=== PATIENT | female | born 1985 | race American Indian/Alaskan Native ===

== ENCOUNTER 2018-01-23 18:41 | Observation (INO) | payer MEDICAID, OTHER ==
[2018-01-23] MEDS ORDERED: BENADRYL ONE (19:28)
[2018-01-23] MEDS ORDERED: SOLU-Medrol ONE (19:29)
[2018-01-23] MEDS ORDERED: PEPCID IV ONE ×2 (19:29→19:44)
[2018-01-23] MEDS ORDERED: BENADRYL IV ONE (19:44)
[2018-01-23] MEDS ORDERED: SOLU-Medrol IV ONE (19:44)
--- NOTE | 2018-01-23 21:40 | Emergency Department Report ---
HPI - General Chief Complaint: Allergic Reaction Time Seen by Provider: 01/23/18 20:47 ED Past Medical Hx - Past Medical History Hx Hypertension: No Hx Congestive Heart Failure: No Hx Diabetes: No Hx Deep Vein Thrombosis: No Hx Renal Disease: No Hx Sickle Cell Disease: No Hx Seizures: No Hx Asthma: No Hx COPD: No Hx HIV: No - Social History Smoking Status: Never Smoker Substance Use Type: None - Medications Home Medications: Home Medications Medication Instructions Recorded Confirmed Last Taken Type Fluconazole [Diflucan TAB] 150 mg PO ONCE #1 tablet 12/28/16 Unknown Rx Miconazole/Cleanser 17 On Wipe 1 each VG QHS #1 kit 12/28/16 Unknown Rx [Monistat 7 Combination Pack] Multivitamin Tab [Multiple Vitamin 1 each PO QDAY #30 tablet 12/28/16 Unknown Rx TAB (Theragran)] Pantoprazole [Protonix TAB] 20 mg PO QDAY #30 tablet. 12/28/16 Unknown Rx predniSONE [Deltasone] 40 mg PO QDAY #30 tablet 12/28/16 Unknown Rx ED Review of Systems ROS: Stated complaint: ALLERGIC REACTION Other details as noted in HPI Physical Exam - Physical Exam Vital Signs: Vital Signs 01/23/18 19:39 Temperature 99.5 F Pulse Rate 72 Respiratory 16 Rate Blood Pressure 136/84 O2 Sat by Pulse 100 Oximetry ED Course Vital Signs 01/23/18 19:39 Temperature 99.5 F Pulse Rate 72 Respiratory 16 Rate Blood Pressure 136/84 O2 Sat by Pulse 100 Oximetry Critical care attestation.: If time is entered above; I have spent that time in minutes in the direct care of this critically ill patient, excluding procedure time. ED Disposition Clinical Impression: Angioedema, Lip swelling Disposition: OP ADMIT IP TO THIS HOSP Is pt being admited?: Yes Condition: Stable Referrals: PRIMARY CARE, [Primary Care Provider] - 3-5 Days Time of Disposition: 21:42 (Dr Peace/hosp)
--- NOTE | 2018-01-23 21:47 | Emergency Department Report ---
<RASHMI BARRETT - Last Filed: 01/23/18 21:42> ED General Adult HPI - General Chief complaint: Allergic Reaction Stated complaint: ALLERGIC REACTION Time Seen by Provider: 01/23/18 20:47 Source: patient Mode of arrival: Ambulatory Limitations: No Limitations - History of Present Illness Initial comments: 33-year-old female with no significant past medical history presents to the emergency department complaining of a 13 hour history of progressively worsening upper lip swelling. She denies any medication, illicit drugs, environmental allergies, foods, family history, foreign travel, or new supplements that may have precipitated the swelling event. Currently, she reports no chest pain, palpitations, fever, chills, sweats, nausea, vomiting, neck pain, odynophagia, dysphagia. No rashes. No treatment was rendered at home. She presents to the emergency department for further evaluation and treatment recommendations Location: mouth Radiation: non-radiation Quality: dull Consistency: constant Associated Symptoms: denies other symptoms Treatments Prior to Arrival: none - Related Data Previous Rx's Medication Instructions Recorded Last Taken Type Fluconazole [Diflucan TAB] 150 mg PO ONCE #1 tablet 12/28/16 Unknown Rx Miconazole/Cleanser 17 On Wipe 1 each VG QHS #1 kit 12/28/16 Unknown Rx [Monistat 7 Combination Pack] Multivitamin Tab [Multiple Vitamin 1 each PO QDAY #30 tablet 12/28/16 Unknown Rx TAB (Theragran)] Pantoprazole [Protonix TAB] 20 mg PO QDAY #30 tablet. 12/28/16 Unknown Rx predniSONE [Deltasone] 40 mg PO QDAY #30 tablet 12/28/16 Unknown Rx Allergies Allergy/AdvReac Type Severity Reaction Status Date / Time No Known Allergies Allergy Verified 12/25/16 20:26 ED Review of Systems ROS: Stated complaint: ALLERGIC REACTION Other details as noted in HPI Eyes: denies: eye pain ENT: denies: throat pain, epistaxis Respiratory: denies: cough, SOB with exertion, SOB at rest Cardiovascular: denies: palpitations, dyspnea on exertion, orthopnea Endocrine: denies: excessive sweating, flushing Gastrointestinal: denies: abdominal pain, nausea, vomiting Genitourinary: denies: dysuria, discharge Musculoskeletal: denies: back pain Neurological: denies: headache, weakness Psychiatric: denies: anxiety, depression ED Past Medical Hx - Past Medical History Hx Hypertension: No Hx Congestive Heart Failure: No Hx Diabetes: No Hx Deep Vein Thrombosis: No Hx Renal Disease: No Hx Sickle Cell Disease: No Hx Seizures: No Hx Asthma: No Hx COPD: No Hx HIV: No - Social History Smoking Status: Never Smoker Substance Use Type: None - Medications Home Medications: Home Medications Medication Instructions Recorded Confirmed Last Taken Type Fluconazole [Diflucan TAB] 150 mg PO ONCE #1 tablet 12/28/16 Unknown Rx Miconazole/Cleanser 17 On Wipe 1 each VG QHS #1 kit 12/28/16 Unknown Rx [Monistat 7 Combination Pack] Multivitamin Tab [Multiple Vitamin 1 each PO QDAY #30 tablet 12/28/16 Unknown Rx TAB (Theragran)] Pantoprazole [Protonix TAB] 20 mg PO QDAY #30 tablet. 12/28/16 Unknown Rx predniSONE [Deltasone] 40 mg PO QDAY #30 tablet 12/28/16 Unknown Rx ED Physical Exam - General Limitations: No Limitations General appearance: alert, in no apparent distress - Head Head exam: Present: atraumatic, normocephalic - Eye Eye exam: Present: normal appearance, PERRL Pupils: Present: normal accommodation - ENT ENT exam: Present: normal exam, normal orophraynx, mucous membranes dry, mucous membranes moist, other (tongue and uvula are normal size and midline. No stridor, no drooling. Lower lip is normal size over the upper lip. This significantly swollen 3-4 times at of normal size. No rashes appreciated to the skin or the intraoral area.) - Neck Neck exam: Present: normal inspection - Respiratory Respiratory exam: Present: normal lung sounds bilaterally. Absent: respiratory distress, wheezes, rales - Cardiovascular Cardiovascular Exam: Present: regular rate, normal rhythm. Absent: systolic murmur, diastolic murmur, rubs, gallop - GI/Abdominal GI/Abdominal exam: Present: soft, normal bowel sounds - Extremities Exam Extremities exam: Present: normal inspection - Back Exam Back exam: Present: normal inspection - Neurological Exam Neurological exam: Present: alert, oriented X3 - Psychiatric Psychiatric exam: Present: normal affect, normal mood - Skin Skin exam: Present: warm, dry, intact, normal color. Absent: rash ED Course Vital Signs 01/23/18 01/23/18 19:39 21:44 Temperature 99.5 F Pulse Rate 72 Respiratory 16 20 Rate Blood Pressure 136/84 O2 Sat by Pulse 100 99 Oximetry ED Medical Decision Making - Medical Decision Making Case was discussed with Dr. Marte home had [id number] with the patient. There' s been no improvement in her symptom of nausea and over an hour after administration of Solu-Medrol, Benadryl, Pepcid C discussed this case with the hospitalist and the plan is to admit Critical care attestation.: If time is entered above; I have spent that time in minutes in the direct care of this critically ill patient, excluding procedure time. ED Disposition Clinical Impression: Angioedema, Lip swelling Disposition: OP ADMIT IP TO THIS HOSP Is pt being admited?: Yes Does the pt Need Aspirin: No Condition: Stable <ARISTIDES MARTE - Last Filed: 01/23/18 22:04> ED Medical Decision Making - Medical Decision Making I examined patient. She has significant upper lip swelling without lower lip involvement. No swelling to tongue, airway, no difficulty breathing on exam. She denies familiar history of angioedema/swelling, personal history of swelling to her face or other extremity, history of allergic reaction, new drug or food exposure, or MARCELA inhibitor use. Differential includes hereditary angioedema, idiopathic angioedema, allergic or IgE mediated angioedema. Patient didn't have any response with administration of Solu-Medrol, Pepcid, or Benadryl. She will be admitted for observation and further workup to the hospitalist service. ED Disposition Is pt being admited?: Yes Does the pt Need Aspirin: No Time of Disposition: 21:42 (Dr Peace/hosp)
[2018-01-23 23:20] LABS: Mean Corpuscular HGB Conc 30 % (30-34); Platelet Count 281 K/mm3 (140-440); Red Blood Count 5.16 M/mm3 (3.65-5.03); Red Cell Distribution Width 17.8 % (13.2-15.2)
[2018-01-23] MEDS: BENADRYL IV SCH (23:31)
[2018-01-23 23:35] LABS: Hematocrit 32.8 % (30.3-42.9); Hemoglobin 9.9 gm/dl (10.1-14.3); Mean Corpuscular Hemoglobin 19 pg (28-32); Mean Corpuscular Volume 64 fl (79-97)
[2018-01-23 23:42] LABS: Alanine Aminotransferase 15 units/L (7-56); BUN/Creatinine Ratio 12; Blood Urea Nitrogen 7 mg/dL (7-17); Calcium 9.8 mg/dL (8.4-10.2); Hemolysis Index 0
[2018-01-24 00:32] LABS: Total Cells Counted 100
[2018-01-24 00:33] LABS: Basophils % (Manual) 0 % (0.0-1.8); Eosinophils % (Manual) 0 % (0.0-4.3); Monocytes % (Manual) 0 % (0.0-7.3)
[2018-01-24 00:34] LABS: Anisocytosis 1+; Hypochromasia 2+; Large Platelets Rare; Platelet Estimate Consistent w Auto
--- NOTE | 2018-01-24 04:01 | History and Physical Report ---
CHIEF COMPLAINT: Swelling of the upper lip. HISTORY OF PRESENT ILLNESS: The patient is a 33-year-old female, who says that some hours prior to presentation, she noticed sudden swelling in the upper lip that started as a small swelling on one side and later on became bigger and covered the whole upper lip. There is no swelling in the lower lip. There is also no swelling in the tongue. No difficulty swallowing. The patient said initially she felt some tingling sensation in the upper lip before the swelling became bigger. The patient said that at the beginning of the swelling, she had some mild shortness of breath that resolved completely. There is no history of chest pain, no history of fever, nausea or vomiting. The patient also denied any history of skin rashes or itching in the rest of the body and presented for evaluation. The patient denied history of ingestion of any new medications and also said that she did not eat any seafood but admitted to eating some strawberries and admitted to using slightly different brand of lipstick. PAST MEDICAL HISTORY: Unremarkable. PAST SURGICAL HISTORY: Noncontributory. FAMILY HISTORY: Family history is noncontributory. SOCIAL HISTORY: The patient does not smoke, does not drink alcohol and does not use illicit drugs. MEDICATIONS: The patient is on fluconazole 150 mg by mouth one time, miconazole ____ or Monistat one at bedtime, multivitamin, Theragran 1 by mouth daily, pantoprazole 20 mg by mouth daily, prednisone 40 mg by mouth daily. ALLERGIES: There are no known drug allergies. REVIEW OF SYSTEMS: CONSTITUTIONAL: There is no fever, no chills, no diaphoresis. HEENT: There is no headache. There is no sore throat, but there is swelling of the lips. No swelling of the tongue or throat. CARDIOVASCULAR SYSTEM: There is no chest pain or orthopnea. RESPIRATORY SYSTEM: There is no shortness of breath or cough. GASTROINTESTINAL SYSTEM: There is no nausea, no vomiting, no abdominal pain, diarrhea or constipation. NEUROLOGICAL SYSTEM: There is no numbness, no dizziness, no altered mental status. MUSCULOSKELETAL SYSTEM: There is no joint pain or swelling. DERMATOLOGICAL SYSTEM: There is no skin rash or itching. GENITOURINARY SYSTEM: There is no dysuria, hematuria, or flank pain. Rest of system review is normal. PHYSICAL EXAMINATION: GENERAL: At the time of exam, the patient was found to be alert, oriented x 3 and in mild distress due to swelling of the upper lips. VITAL SIGNS: At the initial time of presentation shows temperature of 99.5 degrees Fahrenheit, pulse of 72, respiration 16, blood pressure 136/84, O2 sat of 100% on room air. HEENT: Show pupils to be equal, round, reactive to light and accommodative. Extraocular muscles are intact. Oral mucosa shows swelling of the upper lip with no swelling in the lower lip. There is no swelling in the tongue or the throat, does not show any form of redness or swelling. The patient is able to open her mouth and talk. NECK: Neck is supple with no JVD or carotid bruits. CARDIOVASCULAR SYSTEM: Showed normal first and second heart sounds with no gallops or murmurs. RESPIRATORY SYSTEM: Show good air entry on both sides of the lungs with no abnormal breath sounds. GASTROINTESTINAL SYSTEM: Show abdomen to be full, soft, nontender with no organomegaly or rigidity. NEUROLOGICAL: Neuro exam shows no focal deficits. MUSCULOSKELETAL SYSTEM: Show no joint swelling or tenderness. DERMATOLOGICAL SYSTEM: Show no skin rash. GENITOURINARY SYSTEM: Showing no costovertebral angle tenderness. PERTINENT LABORATORY DATA AND IMAGING STUDIES: The patient did not have any imaging studies. The patient's CBC showed normal white count, low hemoglobin of 9.9, normal hematocrit with CBC differential showing elevated segmented neutrophil count of 98%. The patient's chemistry shows slight decrease in sodium of 135 with the rest of chemistry being unremarkable. DIAGNOSIS: Angioedema. PLAN OF ACTION: 1. The patient will be placed on observation in the medical floor on remote telemetry. 2. The patient will be on IV Solu-Medrol 16 mg q. 8 hours. 3. The patient will be on IV Benadryl 25 mg every 6 hours as needed for swelling and itching rash. 4. The patient will be on Pepcid 20 mg by mouth twice daily. 5. The patient's DVT prophylaxis will be through heparin 5000 units subQ q. 12 hours. 6. The patient will be on IV normal saline at 125 mL an hour. 7. The patient's diet will be regular diet. 8. The patient's home medications will be applied after reconciliation. JOB# [id number] OCN/NTS
[2018-01-24] MEDS: SOLU-Medrol IV SCH ×3 (05:34→21:37)
[2018-01-24] MEDS: BENADRYL IV SCH ×3 (05:34→18:44)
[2018-01-24] MEDS: NACL 0.9% 1000 ML 1,000 ML IV SCH ×3 (05:35→21:34)
[2018-01-24] MEDS: HEPARIN SUB-Q SCH ×2 (10:00→21:37)
[2018-01-24] MEDS: PEPCID PO SCH ×2 (11:17→21:37)
[2018-01-24] MEDS ORDERED: AFLURIA QUAD 2018-2019 SYRINGE IM ONE (12:00)
[2018-01-24] MEDS ORDERED: PNEUMOVAX 23 IM ONE (12:00)
--- NOTE | 2018-01-24 12:12 | Progress Note ---
Assessment and Plan Angioedema Continue with Benadryl, Pepcid and IV Solu-Medrol. Patient is in no respiratory distress. Closely monitor respiratory status Subjective Date of service: 01/24/18 Principal diagnosis: angioedema Interval history: Still having swelling of the upper lip and right side of the face. No shortness of breath. Noticed compromise. Objective - Exam Narrative Exam: Constitutional: Has swelling of the upper lip. Ambulating in his room. Well- nourished well-developed. In no distress Head: Normocephalic atraumatic Eyes: Pupils are equal round and reactive to light Nose: No enlarged turbinates, no septal deviation. Mouth: Moist mucous membranes. Neck: Supple no thyromegaly. No bruit. No JVD Heart: Regular rate and rhythm, S1-S2 abnormal. No rubs murmurs or gallop Lungs: Clear to auscultation bilaterally no rales or rhonchi Abdomen: Soft, nontender. Bowel sound are present. Extremities: No edema no cyanosis and no clubbing. Neuro: Alert oriented Oriented x3. No focal sensory or motor deficit. Skin: No rashes no hyperemic spots Psychiatry: Euthymic. Calm. - Constitutional Vitals: Vital Signs - 12hr 01/24/18 01/24/18 01/24/18 01:06 06:28 11:23 Temperature 98.8 F 98.1 F Pulse Rate 97 H 96 H Respiratory 20 16 19 Rate Blood Pressure 130/65 134/83 O2 Sat by Pulse 100 97 98 Oximetry - Labs CBC & Chem 7: 01/23/18 23:02 01/23/18 23:02 Labs: Abnormal lab results 01/23/18 01/23/18 Range/Units 23:02 23:02 RBC 5.16 H (3.65-5.03) M/mm3 Hgb 9.9 L (10.1-14.3) gm/dl MCV 64 L (79-97) fl MCH 19 L (28-32) pg RDW 17.8 H (13.2-15.2) % Seg Neuts % (Manual) 98.0 H (40.0-70.0) % Lymphocytes % (Manual) 2.0 L (13.4-35.0) % Seg Neutrophils # Man 8.6 H (1.8-7.7) K/mm3 Lymphocytes # (Manual) 0.2 L (1.2-5.4) K/mm3 Sodium 135 L (137-145) mmol/L Creatinine 0.6 L (0.7-1.2) mg/dL
[2018-01-24] MEDS ORDERED: BENADRYL IV PRN (22:00)
[2018-01-24] MEDS ORDERED: AMBIEN PO ONE (22:50)
[2018-01-25] MEDS: NACL 0.9% 1000 ML 1,000 ML IV SCH (06:46)
[2018-01-25] MEDS: SOLU-Medrol IV SCH ×2 (06:47→14:33)
[2018-01-25] MEDS: PEPCID PO SCH (10:34)
--- NOTE | 2018-01-25 12:31 | Discharge Summary ---
Providers - Providers Date of Admission: 01/23/18 22:52 Attending physician: PRISCA REDDY MD Primary care physician: ALVERTO SALMERON MD Hospitalization Condition: Stable Hospital course: 33-year-old woman who presented with swelling of lips and face. The patient's did not use any MARCELA inhibitor, denied using any new medications or eating the foods. She was treated medically for angioedema. Offending agents was not identified. The patient was advised to see her PCP to refer her to an travel manager for allergy workup. She clinically improved and was discharged Diagnosis Angioedema Hyperlipidemia Disposition: DC- TO HOME OR SELFCARE Time spent for discharge: 33 minutes Core Measure Documentation - Palliative Care Palliative Care/ Comfort Measures: Not Applicable - Core Measures Any of the following diagnoses?: none Exam - Constitutional Vitals: Temp Pulse Resp BP Pulse Ox 98.6 F 85 16 127/77 98 01/25/18 05:11 01/25/18 05:11 01/25/18 05:11 01/25/18 05:11 01/25/18 05:11 General appearance: Present: no acute distress, well-nourished, other (mild swelling of face) - EENT Eyes: Present: PERRL ENT: hearing intact, clear oral mucosa, other (mild swelling of lips and face) - Neck Neck: Present: supple, normal ROM - Respiratory Respiratory effort: normal Respiratory: bilateral: CTA - Cardiovascular Heart Sounds: Present: S1 & S2. Absent: rub, click - Extremities Extremities: pulses symmetrical, No edema Peripheral Pulses: within normal limits - Abdominal General gastrointestinal: Present: soft, non-tender, non-distended, normal bowel sounds Female genitourinary: Present: normal - Integumentary Integumentary: Present: clear, warm, dry - Musculoskeletal Musculoskeletal: gait normal, strength equal bilaterally - Psychiatric Psychiatric: appropriate mood/affect, intact judgment & insight - Neurologic Neurologic: CNII-XII intact, moves all extremities Plan Follow up with: PRIMARY CARE, [Primary Care Provider] - 7 Days Forms: Work/School Release Form Prescriptions: AtorvaSTATin [Lipitor] 10 mg PO QHS #30 tab diphenhydrAMINE [Benadryl CAP] 25 mg PO Q6HR #28 capsule Famotidine [Pepcid] 20 mg PO BID #60 tablet Prednisone [predniSONE 10 mg (6-Day Pack, 21 Tabs)] 10 mg PO .TAPER #1 tab.ds.pk
[2018-01-25] MEDS: HEPARIN SUB-Q SCH (12:37)
[2018-01-25 12:42] VITALS: BP 140/83
== END 2018-01-25 16:55 | disposition home or self-care (01) ==
LOC: ED 18:41 → 3A 22:52
PROVIDERS: ADMIT Internal Medicine; ATTEND Internal Medicine
DX: T78.3XXA Angioneurotic edema, initial encounter (principal); E78.5 Hyperlipidemia, unspecified; R22.9 Localized swelling, mass and lump, unspecified
CPT/HCPCS: 36415; 80053; 82962; 85007; 85025; 87116; 90686; 90732; 96374; 96375; 96376; 99285; A9270; G0378; J1200; J2930; J7030; J1644